=== PATIENT | male | born 1960 | race Caucasian/White ===

== ENCOUNTER → 2018-09-27 | Outpatient (CLI) | payer BC ==
--- NOTE | 2018-09-27 16:20 | CONS ---
CONSULTATION DATE OF SERVICE: 09/27/2018 58-year-old gentleman has [facility] for obstructive sleep apnea- hypopnea syndrome. HISTORY OF PRESENT ILLNESS/SLEEP WAKE EVALUATION: Patient has been diagnosed with obstructive sleep apnea in 2006. A sleep study at that time showed also periodic limb movements. The patient never had been started on treatment with CPAP for financial issue and he believes that he would not be able to use the equipment. Presently his sleep is worse. His sleep schedule from 10 to 11 p.m. to 5 am on working days and from 11 p.m. to 830 10:00 am on weekends. No problem with falling asleep, although he has TV in bedroom. He has snoring and witnessed episodes of stopped breathing during the sleep. He is moving during the night and that includes moving of his legs and tongue, possibly out of dream movements. Positive history of sleep talking. In the morning, patient wakes up tired, worries about his sleep, has claustrophobia. Dike Sleepiness Scale is 3. PAST MEDICAL HISTORY: Positive for COPD, hyperlipidemia, right foot arthritis. PAST SURGICAL HISTORY: Hernia repair. Vasectomy., MEDICATIONS: Advair, Ventolin, atorvastatin, ibuprofen. SOCIAL HISTORY: Positive for smoking for about 30 pack years. Patient continued to smoke around one pack a day. Alcohol consumption once or two times per week. FAMILY HISTORY: Hypertension, hyperlipidemia, snoring, cancer, acid reflux, diabetes, restless legs. PHYSICAL EXAM: A gentleman without distress. BP 140/81, HR 76, RR 16, height 5 feet 6-1/2 inches, weight 195 pounds. Body mass index 31, temperature 98.1, oxygen saturation at room air 95%. Oropharynx showed extremely low position of soft palate. Mallampati 4. Significant restriction of nasal breathing, especially on the left side. Neck 16 inches in circumference. Abdomen slightly obese. Neck Supple, no JVD. Thyroid is not palpable. LUNGS Clear to percussion and to auscultation. Good air exchange. No wheezing or rhonchi. HEART S1, S2 regular. No murmurs, gallops, or rubs. ABDOMEN: Slightly obese. Soft and nontender. Bowel sounds are present. No organomegaly appreciated. EXTREMITIES No clubbing or cyanosis. ELECTRONIC SCALE TESTER Awake, alert, and oriented X3. Cranial nerves 2 to 7 intact. There is no fasciculation or atrophy. noted. No focal deficits observed. IMPRESSION: 1. Obstructive sleep apnea-hypopnea syndrome documented in 2006. patient has never received treatment with CPAP. Presently, snoring, awakenings from sleep, extremely low position of soft palate, Mallampati 4 obstructive sleep apnea-hypopnea syndrome. 2. Chronic obstructive pulmonary disease. 3. History of smoking for 30 pack years. 4. Restless leg symptoms. 5. Periodic limb movement symptoms. 6. History of out of dream movements during the night possibly REM sleep behavioral disorder. 7. Right foot arthritis. 8. Status post hernia repair. 9. Status post vasectomy. PLAN: 1. Polysomnography for evaluation of patient's breathing during sleep also to check for periodic limb movements and possibly out of dream movements. 1. CPAP/BiPAP titration if sleep study confirms obstructive sleep apnea-hypopnea syndrome. 2. Preferable position during sleep on the side. 3. No driving if patient feels any sleepiness. 4. I will see patient for follow up visit to explain results of testing and following plan. Thank you very much for referring this patient for consultation. Sincerely, Doron Scott MD, PhD, FAASM Diplomat of [employer] [employer] [place] [employer] [facility] [place] MMODL / IJN: [id number] /
== END ==
LOC: SLEEP 14:34
PROVIDERS: ATTEND Internal Medicine
DX: G47.33 Obstructive sleep apnea (adult) (pediatric) (principal); J44.9 Chronic obstructive pulmonary disease, unspecified; G25.81 Restless legs syndrome; G47.61 Periodic limb movement disorder; M19.071 Primary osteoarthritis, right ankle and foot; Z87.891 Personal history of nicotine dependence; Z99.89 Dependence on other enabling machines and devices; Z98.52 Vasectomy status; Z98.890 Other specified postprocedural states; Z79.51 Long term (current) use of inhaled steroids; Z79.1 Long term (current) use of non-steroidal anti-inflammatories (NSAID); Z79.899 Other long term (current) drug therapy
CPT/HCPCS: 99211

== ENCOUNTER 2022-03-26 16:09 | Emergency (ER) | payer BC ==
[2022-03-26] MEDS ORDERED: SODIUM CHLORIDE 0.9% 2,000 ML IV STA (16:36)
[2022-03-26] MEDS ORDERED: cefTRIAXone IN SWFI 1,000 MG/10 ML SYRINGE IVP STA ×2 (16:43→20:01)
[2022-03-26 16:58] LABS: Basophils % (A) 0 %; Eosinophils % (A) 0 %; HCT 35.3 % (39.0-53.0); HGB 11.5 gm/dL (13.0-17.5); Lymphocytes # (A) 1.4 k/uL (1.0-4.8); Lymphocytes % (A) 8 %; MCH 33.9 pg (25.0-35.0); MCHC 32.7 g/dL (31.0-37.0); MCV 103.9 fL (80.0-100.0); Macrocytosis Slight; Mean Platelet Volume 8.1; Monocytes # (A) 0.8 k/uL (0-1.0); Monocytes % (A) 5 %; Neutrophils # (A) 15.6 k/uL (1.3-7.7); Neutrophils % (A) 87 %; Platelet Count 191 k/uL (150-450); RDW 12.4 % (11.5-15.5)
[2022-03-26] MEDS ORDERED: METOCLOPRAMIDE 5 MG/ML 2 ML VIAL IVP STA (16:59)
[2022-03-26 17:10] LABS: Albumin 2.8 g/dL (3.5-5.0); Calcium 7.2 mg/dL (8.4-10.2); Partial Thromboplastin Time 22.7 sec (22.0-30.0); Potassium 4.2 mmol/L (3.5-5.1); Prothrombin Time 11.2 sec (9.0-12.0); Total Bilirubin 0.3 mg/dL (0.2-1.3); Total Protein 4.8 g/dL (6.3-8.2)
[2022-03-26] MEDS ORDERED: SODIUM CHLORIDE 0.9% 1,000 ML IV ONE (17:29)
[2022-03-26] MEDS ORDERED: SODIUM CHLORIDE 0.9% 1,000 ML IV SCH (17:30)
--- NOTE | 2022-03-26 17:32 | CT ---
EXAMINATION TYPE: CT brain cspine wo con DATE OF EXAM: 03/26/2022 COMPARISON: CT brain on 1113 HISTORY: Seizure CT DLP: 1575.3 mGycm Automated exposure control for dose reduction was used. Ventricles of normal size. There is no mass effect or midline shift. No sign of intracranial hemorrha ge. Calvarium is intact. Skull base is intact. There is normal aeration of the mastoid sinuses. The cervical vertebra show some straightening. There is a mild C4-5 subluxation. There is narrowing o f disc spaces at C4-5 and C5-6 with spurring of the endplates. Facet joints are intact. There is mult ilevel mild cervical facet arthropathy. No compression fracture. IMPRESSION: Negative CT scan of the brain. No change. Spondylotic changes in the cervical spine. C4-5 degenerative first-degree spondylolisthesis. No fract ure.
--- NOTE | 2022-03-26 17:33 | XR ---
EXAMINATION TYPE: XR KUB DATE OF EXAM: 03/26/2022 COMPARISON: NONE HISTORY: Flank pain TECHNIQUE: 2 views FINDINGS: 2 view supine show no sign of intestinal obstruction or pneumoperitoneum. Fecal pattern is normal. No evidence of a mass. Lung bases are clear. IMPRESSION: Nonacute abdomen.
[2022-03-26 18:32] VITALS: RESP 17; TEMP 96.2
--- NOTE | 2022-03-26 18:32 | US ---
EXAMINATION TYPE: US kidneys/renal and bladder DATE OF EXAM: 03/26/2022 COMPARISON: NONE CLINICAL HISTORY: flank pain. lt flank pain EXAM MEASUREMENTS: Right Kidney: 11.3 x 5.0 x 5.8 cm Left Kidney: 11.1 x 4.0 x 5.7 cm Right Kidney: No hydronephrosis or masses seen Left Kidney: No hydronephrosis or masses seen Bladder: wnl IMPRESSION: No evidence of renal mass or obstruction. No evidence of bladder mass.
[2022-03-26] MEDS ORDERED: VANCOMYCIN IV PER PHARMACY 1 EACH MISC MISCELLANE PRN (18:34)
[2022-03-26] MEDS ORDERED: CEFEPIME 1 GM in SODIUM CHLORIDE 0.9% 50 ML IVPB STA (18:34)
--- NOTE | 2022-03-26 18:34 | ED ---
Abdominal Pain HPI - General Source: patient Mode of arrival: EMS Limitations: no limitations <Edis Talamantes - Last Filed: 03/26/22 21:49> <Cleve Betancourt - Last Filed: 03/27/22 00:03> - General Chief Complaint: Abdominal Pain Stated Complaint: SYNCOPE Time Seen by Provider: 03/26/22 16:29 - History of Present Illness Initial Comments: Patient is a 62-year-old male presenting with chief complaint of left side pain. Patient states that for the last 3-4 days he has had left flank pain that wraps around to the front. Patient states he figueroa had some difficulty with urination. Patient today was feeling very lightheaded, at bedside states that he had a seizure at home, he has no history of seizures. Seizure lasted for about 30 seconds, no loss of bladder control or tongue injury. He admits to some anxiety with shortness of breath. He denies any chest pain, headache, vision or hearing changes, neck pain, palpitations, hematuria, dysuria, diarrhea, hematochezia, melena, URI-like symptoms. (Edis Talamantes) - Related Data Home Medications Medication Instructions Recorded Confirmed Albuterol Inhaler [Ventolin Hfa 2 puff INHALATION RT-Q6H PRN 03/26/22 03/26/22 Inhaler] Atorvastatin [Lipitor] 20 mg PO HS 03/26/22 03/26/22 Fluticasone Propion/Salmeterol 2 puff INHALATION RT-BID 03/26/22 03/26/22 [Advair Hfa 115-21 Mcg Inhaler] Lansoprazole [Prevacid] 15 mg PO DAILY 03/26/22 03/26/22 Multivitamins, Thera [Multivitamin 1 tab PO DAILY 03/26/22 03/26/22 (formulary)] Allergies Allergy/AdvReac Type Severity Reaction Status Date / Time No Known Allergies Allergy Verified 03/26/22 17:35 Review of Systems ROS Other: All systems not noted in ROS Statement are negative. <Edis Talamantes - Last Filed: 03/26/22 21:49> ROS Other: All systems not noted in ROS Statement are negative. <Cleve Betancourt - Last Filed: 03/27/22 00:03> ROS Statement: Those systems with pertinent positive or pertinent negative responses have been documented in the HPI. Past Medical History Past Medical History: COPD, Hyperlipidemia History of Any Multi-Drug Resistant Organisms: None Reported Past Surgical History: Hernia Repair Additional Past Surgical History / Comment(s): Vasectomy Smoking Status: Current every day smoker Past Alcohol Use History: Daily Past Drug Use History: Marijuana <Edis Talamantes - Last Filed: 03/26/22 21:49> General Exam Limitations: no limitations General appearance: alert, in distress Head exam: Present: atraumatic, normocephalic, normal inspection Eye exam: Present: normal appearance, EOMI. Absent: scleral icterus, periorbital swelling Neck exam: Present: normal inspection Respiratory exam: Present: normal lung sounds bilaterally. Absent: respiratory distress, wheezes, rales, rhonchi, stridor Cardiovascular Exam: Present: regular rate, normal rhythm, normal heart sounds. Absent: systolic murmur, diastolic murmur, rubs, gallop, clicks GI/Abdominal exam: Present: soft, tenderness. Absent: distended, guarding, rebound, rigid Neurological exam: Present: alert, oriented X3, CN II-XII intact Psychiatric exam: Present: normal affect, normal mood Skin exam: Present: warm, dry, intact, normal color. Absent: rash <Edis Talamantes - Last Filed: 03/26/22 21:49> Course <Edis Talamantes - Last Filed: 03/26/22 21:49> Vital Signs 03/26/22 03/26/22 03/26/22 16:15 18:30 20:54 Temperature 96.2 F L Pulse Rate 98 109 H Respiratory 15 17 Rate Blood Pressure 81/59 115/77 O2 Sat by Pulse 94 L 97 Oximetry Fraction of 100 Inspired Oxygen (FIO2) - Reevaluation(s) Reevaluation #1: 03/26/22 18:33 sepsis declared She will be treated with vancomycin and cefepime He is placed on 130 mL per cane she maintenance fluid and given a 2 L fluid bolus Lactic acid of 6.2 and WBC 18. Blood cultures sent (Edis Talamantes) Procedures - Sepsis Sepsis Focused Exam #1 Time Sepsis Criteria Met: 18:33 Sepsis Focused Exam Date: 03/26/22 Sepsis Focused Exam Time: 18:45 Sepsis Focused Exam Complete: Yes Capillary Refill: < 2 Seconds: Fingers Peripheral Pulses: Normal: Radial (R) Skin Color: Pallor Respiratory Exam: normal lung sounds Cardiovascular Exam: tachycardia <Edis Talamantes - Last Filed: 03/26/22 21:49> - Arterial Line No standard instances Consent Obtained: emergent situation Size (Gauge): 14 Technique Used: guide wire technique Post-Procedure: line sutured into place, dry sterile dressing placed Patient Tolerated Procedure: well Complications: none - Central Line Placement Left Femoral Consent Obtained: emergent situation Patient Placed on Monitor/Pulse Ox: Yes MD Prep: mask, gown, gloves Central Line Prep: Chlorhexidine scrub, sterile drapes applied Local Anesthesia Used: Lidocaine 1% Amount of Anesthesia Used (mls): 5 Ultrasound Used for Placement: Yes Central Line Lumen Inserted: triple Central Line Position: good blood return, all ports aspirated, flushed, capped, sutured in place with nylon Dressing Applied: Tegaderm Patient Tolerated Procedure: well Complications: none - Intubation Sedative: Etomidate Mg Given: 20 Laryngoscope: other (glidescope) Size: 4 ET Tube Size: 7.5 Tube Secured Depth (cm): 25 Tube Secured Location: teeth Tube Placement Confirmation: visualized tube passing through cords, equal breath sounds bilaterally, confirmation by capnometry Intubation Complications: hypotension <Cleve Betancourt - Last Filed: 03/27/22 00:03> Medical Decision Making - Lab Data Result diagrams: 03/26/22 16:47 03/26/22 16:47 <Edis Talamantes - Last Filed: 03/26/22 21:49> - Lab Data Result diagrams: 03/26/22 16:47 03/26/22 16:47 - EKG Data -: EKG Interpreted by Nc <Cleve Betancourt - Last Filed: 03/27/22 00:03> - Medical Decision Making Patient is a 62-year-old male presenting for evaluation of left-sided pain. Started 3-4 days ago. Patient felt lightheaded at home today and had a seizure lasting approximately 30 seconds, no history of seizure. Patient is hypotensive and afebrile. On examination there is abdominal tenderness. WBC 18.0. Sodium 125. Carbon dioxide 14. Glucose 324. Lactic acid 6.2. Troponin is 0.092. CT of the brain and cervical spine without contrast shows no acute process. KUB x- ray is negative. Ultrasound of the abdomen and bladder shows no acute process. Patient is being treated for sepsis, given total of 3 L fluid boluses and placed on maintenance rate of 130cc per hour, he has been treated with vancomycin and cefepime, as well as acyclovir and ampicillin in case of meningitis due to the seizure episode. Patient did have a seizure, was given Ativan and Keppra. I spoke with neurologist Dr. Baeza, who recommended MRI with and w/o contrast seizure protocol, consult to ID and anesthesiology for LP, 1g keppra loading dose and 500mg q12, order ESR and CRP, and to give another gram of rocephin. Spoke with Dr. Betancourt regarding management who was in agreement with the plan. (Edis Talamantes) Patient was initially primarily managed by mid-level provider. Patient originally presented complaining of left-sided flank pain. Has been ongoing for multiple days. Also had some lower back pain in addition to this left-sided flank pain. The flank pain wrapped around to the front of his abdomen. Is having some difficulty with urination over that period of time as well. He finally sought medical care today after his witnessed a seizure at home without any history of seizures previously. Patient's presents with the patient to help with history. Patient states he is feeling lightheaded, with his left-sided flank pain. States he has a history of anxiety and feels that he may have a panic attack. He had no other acute complaints upon presentation, including denying chest pain. Did endorse some mild shortness breath, however he did attribute it to anxiety, as he states he is extremely anxious at this time. Denies any nausea, vomiting, headache, change in vision, neck pain, palpitations, bowel complaints. Denies any source of bleeding. Denies any fevers or chills. Denies any sick contacts. Denies any cough. No other acute complaints.When I asked the patient and regarding the chief complaint stated as syncope, they state that is actually the seizure episode that he had at home which is why they called EMS. Patient's states that he somewhat shook and was unresponsive. Eyes rolled in the back of his head. Patient was initially managed by mid-level provider, with my oversight. With the patient's symptoms, there was concern for possibly an intra-abdominal process or infectious etiology for his current symptoms. Did obtain broad workup initially and provided fluid hydration for him. Patient's initial blood pressures were mildly hypertensive with systolics in the 80s with a normal heart rate. Staff did have a difficult time obtaining in accurate temperature, but were able to secure an Axley temp 96.2. Laboratory studies remarkable for leukocytosis of 18, a mild macrocytic anemia with hemoglobin of 11.5 patient had a mild hyponatremia of 125, a non-anion gap acidosis with a carbon dioxide of 14, hyperglycemia at 324, lactic acid 6.2, a slightly elevated troponin of 0.092 which was likely secondary to demand ischemia from the hypotension an underlying process, and a negative C-reactive protein. Initial EKG revealed no signs of acute ischemia. Patient did obtain a CT head and cervical spine, but there was a delay in obtaining CT abdomen and pelvis is they're waiting for lab results prior to obtaining a contrast. CT head and cervical spine showed no acute findings. No acute fractures. Abdominal ultrasound revealed no evidence of renal obstruction or hydronephrosis. KUB x- ray revealed no acute findings. Was updated on the results and we decided that patient did meet sepsis criteria with his hypotension, elevated lactic acid. The cultures were already obtained and sent I did recommend we start the patient on empiric antibiotics broad- spectrum. He is already received 3 L total of fluid. We'll monitor the lactic acid. Patient seemed to be responding to therapy. I was notified by the mid-level provider over concern for recurrence of hypotension. When I presented to the bedside, patient was turned over and leaning on his front. States he felt extremely anxious. Could not get comfortable. Blood pressure was systolics in the 80s, however patient was actively moving his arm. Recommended we laid the patient on his back obtain an accurate blood pressure. At that time, blood pressure did return to systolics in the 100s. Discussed with him that I would like to obtain a chest x-ray in addition to CT abdomen and pelvis with contrast. He was in agreement this plan. Shortly after, I was notified that the patient began having another seizure. I presented the bedside and patient had urinary incontinence in addition to some generalized tonic clonic movements, but mostly diffuse limb stiffness. I instructed the team to place the patient on supplemental oxygen, continue cardiac monitoring, and administer a small dose of Ativan, 1mg. Seizure activity stopped. Patient did have urinary incontinence during the episode. He was postictal during episode. I did mid-level provider, and we decided to extend coverage for possible meningitis due to the concern for infectious etiology for his current symptoms as well as his recurrent seizures. She did additionally order amoxicillin, as well as IV ampicillin, and acyclovir. She sp lissy with neurology on-call, and I went to reevaluate the patient again. At this time, patient remained somewhat postictal. Patient however it was beginning to have worsening bradycardia as notified by nursing staff. I did instruct them to administer a dose of 0.5mg atropine, as the patient's blood pressure did decrease again with systolics in the 80s. Additional IV fluids were administered. Patient did have a short run of wide complex tachycardia for approximately 10 seconds following the initial bradycardia episode. This self resolved. Atropine was administered and heart rate did improve. Over the patient began having a sinus tachycardia. This was seen on EKG that was obtained. At this time I spoke with the patient's , and recommended that we obtain a central line and an arterial line as the patient's blood pressures began to decrease again. She was in agreement with this plan. Left femoral central an arterial line were placed by myself. Patient was started on Levophed drip and was given 3 doses of this dose epinephrine during the procedure. Following line placement, patient remains somewhat unresponsive. Had some agonal respirations. Blood pressure remained low, with systolics varying from 60-80 cuff pressures. Patient was transferred to the resuscitation bay for intubation for airway control. Exam otherwise remains unchanged at this time. GCS at this time was approximately 5 and patient had agonal respirations. Following a successful intubation, patient lost pulses after experiencing worsening bradycardia not responsive to atropine. ACLS protocol was followed, and chest compressions were started. CPR was started at 2040 immediately. ACLS protocol and CPR protocol were followed for 25 minutes total. A total of 8 epinephrine amps, 5 bicarbonate amps, 5 calcium amps were administered in addition to one D50 amp. Prior to arrest, patient's repeat sugar following his witnessed seizure in the department was within normal limits. Throughout the cardiac arrest code, patient did present and ventricular fibrillation on multiple occasions and was defibrillated a total of 5 times. He received 300 mg of amiodarone followed by the 150 mg's of amiodarone. However after the final defibrillation at 2057, patient remained in asystole. During the final 5 minutes of resuscitation, I did speak with the patient's and brought her to bedside. She expressed understanding of everything that was being done. Was in agreement with stopping resuscitation after 25 minutes. At 2104, patient had no cardiac activity on ultrasound. Time of was called at 2104. I spoke with the medical grade shoemaker, and they were in agreement with [id number] [place] [id number]. I spoke with the patient's again and answered all questions thatI could. I did contact the patient's primary care provider, Dr. Lopez and updated him on the patient's . [place] [facility] [place] has . (Cleve Betancourt) - Lab Data Lab Results 03/26/22 03/26/22 03/26/22 Range/Units 14:47 16:47 16:47 WBC 18.0 H (3.8-10.6) k/uL RBC 3.40 L (4.30-5.90) m/uL Hgb 11.5 L (13.0-17.5) gm/dL Hct 35.3 L (39.0-53.0) % MCV 103.9 H (80.0-100.0) fL MCH 33.9 (25.0-35.0) pg MCHC 32.7 (31.0-37.0) g/dL RDW 12.4 (11.5-15.5) % Plt Count 191 (150-450) k/uL MPV 8.1 Neutrophils % 87 % Lymphocytes % 8 % Monocytes % 5 % Eosinophils % 0 % Basophils % 0 % Neutrophils # 15.6 H (1.3-7.7) k/uL Lymphocytes # 1.4 (1.0-4.8) k/uL Monocytes # 0.8 (0-1.0) k/uL Eosinophils # 0.0 (0-0.7) k/uL Basophils # 0.0 (0-0.2) k/uL Macrocytosis Slight PT 11.2 (9.0-12.0) sec INR 1.0 (<1.2) APTT 22.7 (22.0-30.0) sec Sodium (137-145) mmol/L Potassium (3.5-5.1) mmol/L Chloride (98-107) mmol/L Carbon Dioxide (22-30) mmol/L Anion Gap mmol/L BUN (9-20) mg/dL Creatinine (0.66-1.25) mg/dL Est GFR (CKD-EPI)AfAm (>60 ml/min/1.73 sqM) Est GFR (CKD-EPI)NonAf (>60 ml/min/1.73 sqM) Glucose (74-99) mg/dL POC Glucose (mg/dL) (70-110) mg/dL POC Glu Tube Cutter ID Lactic Ac Sepsis Rflx Plasma Lactic Acid Saurabh (0.7-2.0) mmol/L Calcium (8.4-10.2) mg/dL Total Bilirubin (0.2-1.3) mg/dL AST (17-59) U/L ALT (4-49) U/L Alkaline Phosphatase (38-126) U/L Troponin I (0.000-0.034) ng/mL C-Reactive Protein <0.5 (<1.0) mg/dL Total Protein (6.3-8.2) g/dL Albumin (3.5-5.0) g/dL Amylase (30-110) U/L Lipase (23-300) U/L 03/26/22 03/26/22 03/26/22 Range/Units 16:47 16:47 17:27 WBC (3.8-10.6) k/uL RBC (4.30-5.90) m/uL Hgb (13.0-17.5) gm/dL Hct (39.0-53.0) % MCV (80.0-100.0) fL MCH (25.0-35.0) pg MCHC (31.0-37.0) g/dL RDW (11.5-15.5) % Plt Count (150-450) k/uL MPV Neutrophils % % Lymphocytes % % Monocytes % % Eosinophils % % Basophils % % Neutrophils # (1.3-7.7) k/uL Lymphocytes # (1.0-4.8) k/uL Monocytes # (0-1.0) k/uL Eosinophils # (0-0.7) k/uL Basophils # (0-0.2) k/uL Macrocytosis PT (9.0-12.0) sec INR (<1.2) APTT (22.0-30.0) sec Sodium 125 L (137-145) mmol/L Potassium 4.2 (3.5-5.1) mmol/L Chloride 100 (98-107) mmol/L Carbon Dioxide 14 L (22-30) mmol/L Anion Gap 11 mmol/L BUN 11 (9-20) mg/dL Creatinine 1.17 (0.66-1.25) mg/dL Est GFR (CKD-EPI)AfAm 77 (>60 ml/min/1.73 sqM) Est GFR (CKD-EPI)NonAf 66 (>60 ml/min/1.73 sqM) Glucose 324 H (74-99) mg/dL POC Glucose (mg/dL) (70-110) mg/dL POC Glu Tube Cutter ID Lactic Ac Sepsis Rflx Y Plasma Lactic Acid Saurabh 6.2 H* (0.7-2.0) mmol/L Calcium 7.2 L (8.4-10.2) mg/dL Total Bilirubin 0.3 (0.2-1.3) mg/dL AST 20 (17-59) U/L ALT 23 (4-49) U/L Alkaline Phosphatase 44 (38-126) U/L Troponin I (0.000-0.034) ng/mL C-Reactive Protein (<1.0) mg/dL Total Protein 4.8 L (6.3-8.2) g/dL Albumin 2.8 L (3.5-5.0) g/dL Amylase 45 (30-110) U/L Lipase 95 (23-300) U/L 03/26/22 03/26/22 Range/Units 18:18 19:34 WBC (3.8-10.6) k/uL RBC (4.30-5.90) m/uL Hgb (13.0-17.5) gm/dL Hct (39.0-53.0) % MCV (80.0-100.0) fL MCH (25.0-35.0) pg MCHC (31.0-37.0) g/dL RDW (11.5-15.5) % Plt Count (150-450) k/uL MPV Neutrophils % % Lymphocytes % % Monocytes % % Eosinophils % % Basophils % % Neutrophils # (1.3-7.7) k/uL Lymphocytes # (1.0-4.8) k/uL Monocytes # (0-1.0) k/uL Eosinophils # (0-0.7) k/uL Basophils # (0-0.2) k/uL Macrocytosis PT (9.0-12.0) sec INR (<1.2) APTT (22.0-30.0) sec Sodium (137-145) mmol/L Potassium (3.5-5.1) mmol/L Chloride (98-107) mmol/L Carbon Dioxide (22-30) mmol/L Anion Gap mmol/L BUN (9-20) mg/dL Creatinine (0.66-1.25) mg/dL Est GFR (CKD-EPI)AfAm (>60 ml/min/1.73 sqM) Est GFR (CKD-EPI)NonAf (>60 ml/min/1.73 sqM) Glucose (74-99) mg/dL POC Glucose (mg/dL) 195 H (70-110) mg/dL POC Glu Tube Cutter ID Lactic Ac Sepsis Rflx Plasma Lactic Acid Saurabh (0.7-2.0) mmol/L Calcium (8.4-10.2) mg/dL Total Bilirubin (0.2-1.3) mg/dL AST (17-59) U/L ALT (4-49) U/L Alkaline Phosphatase (38-126) U/L Troponin I 0.092 H* (0.000-0.034) ng/mL C-Reactive Protein (<1.0) mg/dL Total Protein (6.3-8.2) g/dL Albumin (3.5-5.0) g/dL Amylase (30-110) U/L Lipase (23-300) U/L - EKG Data EKG Comments: 12-lead Electrocardiogram Interpretation Note EKG was reviewed and interpreted by myself. 12-lead ECG performed at 1650 is i nterpreted by me as revealing normal sinus rhythm at a rate of 81 beats per minute. Rapelje is normal. MS interval is 158 milliseconds, QRS durations 104 ms, QTc is 431 ms.. There were no ST or T wave abnormalities to suggest myocardial ischemia or injury. R wave progression across the precordium was satisfactory. By my interpretation this EKG is non-diagnostic for acute ischemia. 12-lead Electrocardiogram Interpretation Note EKG was reviewed and interpreted by myself. 12-lead ECG performed at 1957 is interpreted by me as revealing sinus tachycardia at a rate of 128 beats per minute. Rapelje is normal. MS interval is 168 ms, QRS durations 106 ms, QTC is 375 ms.. There were no ST or T wave abnormalities to suggest myocardial ischemia or injury. R wave progression across the precordium was satisfactory. By my interpretation this EKG is non-diagnostic for acute ischemia. ([facility] Cleve bianchi) Disposition <Edis Talamantes - Last Filed: 03/26/22 21:49> Preliminary Cause of : sepsis, cardiac arrest <Cleve Betancourt - Last Filed: 03/27/22 00:03> Clinical Impression: Sepsis, Abdominal pain of unknown cause, New onset seizure, Cardiac arrest, Hypotension, Bradycardia Disposition: Instructions (If sedation given, give patient instructions): Seizure/Epilepsy Discharge Instructions & Follow-Up Referrals: Juan Ramon Lopez MD [Primary Care Provider] - 1-2 days
[2022-03-26] MEDS ORDERED: ACETAMINOPHEN TAB 500 MG TAB PO STA (18:36)
[2022-03-26] MEDS ORDERED: IBUPROFEN 600 MG TAB PO STA (18:37)
[2022-03-26] MEDS ORDERED: VANCOMYCIN 1,500 MG in SODIUM CHLORIDE 0.9% 250 ML IVPB STA (18:44)
[2022-03-26] MEDS ORDERED: LORazepam 2 MG/ML INJ IV STA (19:20)
[2022-03-26] MEDS ORDERED: levETIRAcetam IV 2,000 MG in SODIUM CHLORIDE 0.9% 250 ML IVPB ONE (19:26)
[2022-03-26] MEDS ORDERED: levETIRAcetam IV 1,000 MG in SALINE 1 100ML.BAG IVPB STA (19:27)
[2022-03-26 19:35] LABS: Glucose,Whole Blood 195 mg/dL (70-110)
[2022-03-26] MEDS ORDERED: AMPICILLIN 2,000 MG in SODIUM CHLORIDE 0.9% 100 ML IVPB ONE (19:45)
[2022-03-26] MEDS ORDERED: ACYCLOVIR SODIUM 750 MG in SODIUM CHLORIDE 0.9% 100 ML IVPB ONE (20:00)
[2022-03-26] MEDS ORDERED: NOREPINEPHRINE 32 MG in SODIUM CHLORIDE 0.9% 218 ML IV ONE (20:15)
[2022-03-26] MEDS ORDERED: ATROPINE SULFATE 0.1 MG/ML 10ML SYRINGE ONE (20:40)
[2022-03-26] MEDS ORDERED: DEXTROSE 5% IN WATER 50 ML BAG ONE (20:40)
[2022-03-26] MEDS ORDERED: AMIODARONE 50 MG/ML 3 ML VIAL IV ONE (20:40)
[2022-03-26] MEDS ORDERED: SODIUM BICARB 8.4% 50 ML SYR (1 MEQ/ML) ONE (20:40)
[2022-03-26] MEDS ORDERED: EPINEPHrine 10 ML SYRINGE (0.1 MG/ML) ONE (20:40)
[2022-03-26] MEDS ORDERED: DEXTROSE 50% SYRINGE 50 ML IVP ONE (20:40)
[2022-03-26] MEDS ORDERED: CALCIUM CHLORIDE 100 MG/ML 10 ML SYRINGE ONE (20:40)
[2022-03-26] MEDS ORDERED: levETIRAcetam IV 1,000 MG in SALINE 1 100ML.BAG IVPB SCH (21:00)
[2022-03-26] MEDS ORDERED: AMPICILLIN 2,000 MG in SODIUM CHLORIDE 0.9% 100 ML IVPB SCH (23:00)
[2022-03-27] MEDS ORDERED: ACYCLOVIR SODIUM 750 MG in SODIUM CHLORIDE 0.9% 100 ML IVPB SCH ×2
--- NOTE | 2022-03-27 00:10 | ED ---
Medical Decision Making - Lab Data Result diagrams: 03/26/22 16:47 03/26/22 16:47 Lab Results 03/26/22 03/26/22 03/26/22 Range/Units 14:47 16:47 16:47 WBC 18.0 H (3.8-10.6) k/uL RBC 3.40 L (4.30-5.90) m/uL Hgb 11.5 L (13.0-17.5) gm/dL Hct 35.3 L (39.0-53.0) % MCV 103.9 H (80.0-100.0) fL MCH 33.9 (25.0-35.0) pg MCHC 32.7 (31.0-37.0) g/dL RDW 12.4 (11.5-15.5) % Plt Count 191 (150-450) k/uL MPV 8.1 Neutrophils % 87 % Lymphocytes % 8 % Monocytes % 5 % Eosinophils % 0 % Basophils % 0 % Neutrophils # 15.6 H (1.3-7.7) k/uL Lymphocytes # 1.4 (1.0-4.8) k/uL Monocytes # 0.8 (0-1.0) k/uL Eosinophils # 0.0 (0-0.7) k/uL Basophils # 0.0 (0-0.2) k/uL Macrocytosis Slight PT 11.2 (9.0-12.0) sec INR 1.0 (<1.2) APTT 22.7 (22.0-30.0) sec Sodium (137-145) mmol/L Potassium (3.5-5.1) mmol/L Chloride (98-107) mmol/L Carbon Dioxide (22-30) mmol/L Anion Gap mmol/L BUN (9-20) mg/dL Creatinine (0.66-1.25) mg/dL Est GFR (CKD-EPI)AfAm (>60 ml/min/1.73 sqM) Est GFR (CKD-EPI)NonAf (>60 ml/min/1.73 sqM) Glucose (74-99) mg/dL POC Glucose (mg/dL) (70-110) mg/dL POC Glu Bone Tender ID Lactic Ac Sepsis Rflx Plasma Lactic Acid Saurabh (0.7-2.0) mmol/L Calcium (8.4-10.2) mg/dL Total Bilirubin (0.2-1.3) mg/dL AST (17-59) U/L ALT (4-49) U/L Alkaline Phosphatase (38-126) U/L Troponin I (0.000-0.034) ng/mL C-Reactive Protein <0.5 (<1.0) mg/dL Total Protein (6.3-8.2) g/dL Albumin (3.5-5.0) g/dL Amylase (30-110) U/L Lipase (23-300) U/L 03/26/22 03/26/22 03/26/22 Range/Units 16:47 16:47 17:27 WBC (3.8-10.6) k/uL RBC (4.30-5.90) m/uL Hgb (13.0-17.5) gm/dL Hct (39.0-53.0) % MCV (80.0-100.0) fL MCH (25.0-35.0) pg MCHC (31.0-37.0) g/dL RDW (11.5-15.5) % Plt Count (150-450) k/uL MPV Neutrophils % % Lymphocytes % % Monocytes % % Eosinophils % % Basophils % % Neutrophils # (1.3-7.7) k/uL Lymphocytes # (1.0-4.8) k/uL Monocytes # (0-1.0) k/uL Eosinophils # (0-0.7) k/uL Basophils # (0-0.2) k/uL Macrocytosis PT (9.0-12.0) sec INR (<1.2) APTT (22.0-30.0) sec Sodium 125 L (137-145) mmol/L Potassium 4.2 (3.5-5.1) mmol/L Chloride 100 (98-107) mmol/L Carbon Dioxide 14 L (22-30) mmol/L Anion Gap 11 mmol/L BUN 11 (9-20) mg/dL Creatinine 1.17 (0.66-1.25) mg/dL Est GFR (CKD-EPI)AfAm 77 (>60 ml/min/1.73 sqM) Est GFR (CKD-EPI)NonAf 66 (>60 ml/min/1.73 sqM) Glucose 324 H (74-99) mg/dL POC Glucose (mg/dL) (70-110) mg/dL POC Glu Bone Tender ID Lactic Ac Sepsis Rflx Y Plasma Lactic Acid Saurabh 6.2 H* (0.7-2.0) mmol/L Calcium 7.2 L (8.4-10.2) mg/dL Total Bilirubin 0.3 (0.2-1.3) mg/dL AST 20 (17-59) U/L ALT 23 (4-49) U/L Alkaline Phosphatase 44 (38-126) U/L Troponin I (0.000-0.034) ng/mL C-Reactive Protein (<1.0) mg/dL Total Protein 4.8 L (6.3-8.2) g/dL Albumin 2.8 L (3.5-5.0) g/dL Amylase 45 (30-110) U/L Lipase 95 (23-300) U/L 03/26/22 03/26/22 Range/Units 18:18 19:34 WBC (3.8-10.6) k/uL RBC (4.30-5.90) m/uL Hgb (13.0-17.5) gm/dL Hct (39.0-53.0) % MCV (80.0-100.0) fL MCH (25.0-35.0) pg MCHC (31.0-37.0) g/dL RDW (11.5-15.5) % Plt Count (150-450) k/uL MPV Neutrophils % % Lymphocytes % % Monocytes % % Eosinophils % % Basophils % % Neutrophils # (1.3-7.7) k/uL Lymphocytes # (1.0-4.8) k/uL Monocytes # (0-1.0) k/uL Eosinophils # (0-0.7) k/uL Basophils # (0-0.2) k/uL Macrocytosis PT (9.0-12.0) sec INR (<1.2) APTT (22.0-30.0) sec Sodium (137-145) mmol/L Potassium (3.5-5.1) mmol/L Chloride (98-107) mmol/L Carbon Dioxide (22-30) mmol/L Anion Gap mmol/L BUN (9-20) mg/dL Creatinine (0.66-1.25) mg/dL Est GFR (CKD-EPI)AfAm (>60 ml/min/1.73 sqM) Est GFR (CKD-EPI)NonAf (>60 ml/min/1.73 sqM) Glucose (74-99) mg/dL POC Glucose (mg/dL) 195 H (70-110) mg/dL POC Glu Bone Tender ID Lactic Ac Sepsis Rflx Plasma Lactic Acid Saurabh (0.7-2.0) mmol/L Calcium (8.4-10.2) mg/dL Total Bilirubin (0.2-1.3) mg/dL AST (17-59) U/L ALT (4-49) U/L Alkaline Phosphatase (38-126) U/L Troponin I 0.092 H* (0.000-0.034) ng/mL C-Reactive Protein (<1.0) mg/dL Total Protein (6.3-8.2) g/dL Albumin (3.5-5.0) g/dL Amylase (30-110) U/L Lipase (23-300) U/L Critical Care Time Critical Care Time: Yes Total Critical Care Time: 35 Critical Care Time: Upon my evaluation, this patient had a high probability of imminent or life- threatening deterioration due to sepsis, new-onset seizures cardiac arrest, , which required my direct attention, intervention, and personal management. I have personally provided 35 minutes of critical care time exclusive of time spent on separately billable procedures. Time includes review of laboratory data, radiology results, discussion with consultants, and monitoring for potential decompensation. Interventions were performed as documented in my note. Disposition Clinical Impression: Sepsis, Abdominal pain of unknown cause, New onset seizure, Cardiac arrest, Hypotension, Bradycardia Disposition: Instructions (If sedation given, give patient instructions): Seizure/Epilepsy Discharge Instructions & Follow-Up Referrals: Juan Ramon Lopez MD [Primary Care Provider] - 1-2 days Preliminary Cause of : Cardiac arrest. Sepsis. Procedures - Sepsis Sepsis Focused Exam #1 Time Sepsis Criteria Met: 18:33
[2022-03-27 04:49] VITALS: BP 0/0; PULSE 0
[2022-03-27] MEDS ORDERED: VANCOMYCIN 1,500 MG in SODIUM CHLORIDE 0.9% 250 ML IVPB SCH (08:00)
== END 2022-03-26 22:00 | disposition expired ==
LOC: EC 16:09
DX: A41.9 Sepsis, unspecified organism (principal); I46.9 Cardiac arrest, cause unspecified; J44.9 Chronic obstructive pulmonary disease, unspecified; E78.5 Hyperlipidemia, unspecified; F17.200 Nicotine dependence, unspecified, uncomplicated; F12.90 Cannabis use, unspecified, uncomplicated; Z79.51 Long term (current) use of inhaled steroids; Z79.899 Other long term (current) drug therapy
CPT/HCPCS: 99285; 96365; 96366 ×3; 96375 ×3; 36620; 36556; 31500; 36415; 94002; 93005; 80053; 85652; 82150; 83605; 83690; 84484; 85025; 85610; 85730; 86140; 87040; 74018; 76770; 72125; 70450; J2060; J2765; J0282; J0461; J0171; J0696; J1953